=== PATIENT | female | born 1990 | race African-American/Black ===

== ENCOUNTER 2019-04-24 12:15 | Emergency (ER) | payer MEDICAID ==
[~2019-04-24] VITALS: Ht 172.7 cm; Wt 73.0 kg
[2019-04-24] MEDS ORDERED: SODIUM CHLORIDE 0.9% 1,000 ML IV ONE (13:06)
[2019-04-24 13:33] LABS: BASOPHILS % 2.3 % (0.0-2.0); EOSINOPHILS % 1.4 % (0.0-5.0); HEMATOCRIT. 38.9 % (36.0-48.0); LYMPHOCYTES % 26.3 % (20.0-50.0); MEAN CORPUSCULAR HEMOGLOBIN 29.5 pg (28.0-32.0); MEAN CORPUSCULAR VOLUME 88.5 fL (81.0-99.0); MEAN PLATELET VOLUME 7.9 fl (7.4-10.4); MONOCYTES % 6.3 % (2.0-8.0); NEUTROPHILS % 63.7 % (40.0-76.0); PLATELET 389 x1000/uL (130-400)
[2019-04-24 13:39] LABS: CHLORIDE 106 mEq/L (98-107); PROTHROMBIN TIME 10.1 sec (9.6-11.0)
[2019-04-24 13:56] LABS: CLARITY URINE CLEAR (CLEAR); COLOR URINE YELLOW (YELLOW); KETONES URINE NEGATIVE (NEGATIVE); LEUKOCYTE ESTERASE URINE NEGATIVE (NEGATIVE); NITRITE URINE NEGATIVE (NEGATIVE); OCCULT BLOOD URINE NEGATIVE (NEGATIVE); PROTEIN URINE NEGATIVE (NEGATIVE); SPECIFIC GRAVITY URINE 1.013 (1.005-1.030); UROBILINOGEN URINE 0.2 E.U./dL (0.2-1.0)
[2019-04-24] MEDS ORDERED: KETOROLAC 15MG/ML VIAL IV ONE (15:15)
[2019-04-24 15:18] VITALS: BP 133/85
== END 2019-04-24 15:15 | disposition home or self-care (01) ==
LOC: ER 12:15
DX: S00.83XA Contusion of other part of head, initial encounter (principal); S16.1XXA Strain of muscle, fascia and tendon at neck level, initial encounter; R10.32 Left lower quadrant pain; R03.0 Elevated blood-pressure reading, without diagnosis of hypertension; W22.12XA Striking against or struck by front passenger side automobile airbag, initial encounter; V49.59XA Passenger injured in collision with other motor vehicles in traffic accident, initial encounter; Y93.89 Activity, other specified; Y92.410 Unspecified street and highway as the place of occurrence of the external cause
CPT/HCPCS: 36415; 70450; 71045; 72125; 74177; 80053; 81003; 83690; 85025; 85610; 86850; 86900; 86901; 96374; 99284; J1885; J7030; Z7610